=== PATIENT | female | born 1965 | race Caucasian/White ===

== ENCOUNTER 2025-06-23 19:02 | Emergency (ER) | payer BC, SELFPAY ==
--- NOTE | ~2025-06-23 | CT_ITS ---
CT HEAD NON-CONTRAST Clinical History: royce Comparison: 05/29/2019 Technique: Unenhanced axial images skull base to vertex Coronal, sagittal reformats CT images acquired with automatic exposure control for dose reduction DLP: 681 mGy-cm Findings: Bifrontal encephalomalacia, right side worse. Subtle nondisplaced occipital fracture not excluded. Sulci, ventricles: Unremarkable. No intracerebral hemorrhage. No evidence acute territorial infarct. No mass effect, midline shift. Visualized paranasal sinuses: Clear. Mastoid air cells: Clear. IMPRESSION: 1. No acute intracranial findings. Reviewed, dictated and finalized at location R.
--- NOTE | ~2025-06-23 | CT_ITS ---
EXAMINATION: CTA brain carotid DATE: 06/23/2025 20:59 INDICATION: Altered mental status. Seizure activity. TECHNIQUE: Computed tomographic angiography (CTA) of the head was performed with 100 mL Omnipaque-350 intravenous contrast. CTA of the neck was performed with intravenous contrast. Automated exposure control and iterative reconstruction technique were employed. The dose-length product was 956.63 mGy-cm. Maximum intensity projection and volume rendered 3D-reconstructions were created by the technologist on a separate workstation. COMPARISON: Head CT 06/23/2025 FINDINGS: HEAD CTA: There are old infarcts in the frontal lobes, right worse than left. There is no intracranial hemorrhage, acute infarction, or abnormal intracranial mass lesion. There is ex vacuo dilatation of right lateral ventricle. The orbits are normal. There is mild mucosal thickening in the paranasal sinuses. The mastoid air cells are normal. There is a chronic nondisplaced fracture of the occipital bone. The vertebral arteries are codominant. There is no significant stenosis of basilar artery or the posterior cerebral arteries. There is no significant stenosis of the intracranial internal carotid arteries or anterior or middle cerebral arteries. Anterior communicating artery is normal. The posterior communicating arteries are normal. There is no aneurysm. NECK CTA: There are no pathologically enlarged lymph nodes. There is no significant stenosis of the vertebral arteries. There is no visible plaque in the proximal internal carotid arteries. There is 0% stenosis of the proximal right internal carotid artery relative to normal distal artery lumen diameter (NASCET criteria). There is 0% stenosis of the proximal left internal carotid artery relative to normal distal artery lumen diameter. There is mild cervical spondylosis. There are chronic burst fractures of T4 and T5. IMPRESSION: 1. 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 2. No aneurysm or significant intracranial arterial stenosis. 3. 0% stenosis of the proximal internal carotid arteries relative to normal distal artery lumen diameters (NASCET criteria). Reviewed, dictated and finalized at location E. IMPRESSION: 1. 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 2. No aneurysm or significant intracranial arterial stenosis. 3. 0% stenosis of the proximal internal carotid arteries relative to normal dis allison artery lumen diameters (NASCET criteria).
[2025-06-23 19:09] VITALS: BP 114/83; PULSE 93; RESP 22; TEMP 36.6; O2SAT 97
--- NOTE | 2025-06-23 19:12 | ED_ITS ---
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 Per EMS, patient began have seizure activity around 1806. They are unsure of how long the tonic clonic activity lasted but when they arrived, and she was no longer doing that. She had apparently recently had her Keppra increased but was on vacation and ran out of her prescription so she has not had it for few days. Patient was given a total of 10 mg of Versed EN route. She has not had return to baseline. Related Data Allergies Allergy/AdvReac Type Severity Reaction Status Date / Time No Known Allergies Allergy Uncoded 05/29/19 13:57 Review of Systems 2 Review of Systems: ROS unobtainable: Yes unobtainable due to mental status Exam 2 Narrative: APPEARANCE: No acute distress, nontoxic, resting in bed EYES: PERRL. EOMI HEENT: Normocephalic, atraumatic, OMM RESPIRATORY: No respiratory distress Clear to auscultation bilaterally with no rhonchi wheezing or rales. CARDIOVASCULAR: Regular rate and rhythm without murmurs rubs or gallops. ABDOMINAL: Soft, nontender, nondistended, no rebound or guarding MUSCULOSKELETAl: Moves all extremities. No clubbing, cyanosis or edema. NEURO: Unresponsive. Following commands, speech normal, no focal deficits SKIN:: Warm, dry. No rashes lesions or abrasions Course Vital Signs Vital signs: Vital Signs Temperature 97.9 F 06/23/25 19:09 Pulse Rate 93 06/23/25 19:09 Respiratory Rate 22 H 06/23/25 19:09 Blood Pressure 114/83 06/23/25 19:09 Pulse Oximetry 97 06/23/25 19:09 Oxygen Delivery Room Air 06/23/25 19:09 Temperature 98.2 F 06/23/25 21:04 Pulse Rate 111 H 06/23/25 22:41 Respiratory Rate 20 06/23/25 22:41 Blood Pressure 140/98 H 06/23/25 22:41 Pulse Oximetry 96 06/23/25 22:41 Oxygen Delivery Room Air 06/23/25 19:09 MDM - Seizure MDM Narrative Medical decision making narrative: A 60-year-old female presenting for altered mental status and seizure activity. On initial evaluation, patient did appear postictal, was minimally responsive but protecting her airway. Did have an intermittent left lateral gaze. She had received a total of 10 mg IM Versed by EMS prior to arrival. She had no focal deficits noted but full neurologic exam is limited due to her altered mental status at this time. No obvious evidence of trauma. CBC was without significant abnormalities. She did have an anion gap of 21 likely explained by the lactic acidosis at 9 6. UA clear. UDS negative except for benzos. Patient continued to have intermittent left lateral gaze with some occasional shaking that may have been a subclinical seizure of some kind so she was given an additional 5 mg of Versed and given 2 g of Keppra. I discussed case with Dr. Stallworth, agrees with current antiepileptic regimen, recommends 750 mg b.i.d. while in the hospital. However, Stat rad called and CTA brain/cervical showed nondisplaced occipital bone fracture. I discussed the case with , neuro surgery, did recommended the patient be transferred in the event that she develops any intracranial surgical emergency such as an epidural hematoma. I subsequently discussed the case with [place], neurology at [facility], suggests discussions with neurosurgery. Spoke with Dr. Iverson, neurosurgery at [place], will accept patient in ED to ED transfer. Report given to Dr. Ramon, EM. Patient did begin to have some minor improvements in mental status and was mumbling some words and appeared to be complaining of pain throughout body her. Vitals remained stable except for some slight tachycardia. There were still no obvious focal neurologic deficits. Patient was transferred to [facility] in stable condition. CRITICAL CARE Indication: Status epilepticus Time type: intermittent I provided a total of 45 minutes of critical care excluding separately billable procedures. This includes time w/ EMS, initial bedside evaluation, reviewing old records, review of testing done while under my care, discussion w/ the family, nurses, service loss control consultant and guiding the patient?s care while in the emergency department. Differential Diagnosis Differential diagnosis: Likely intractable seizure disorder, focal seizure, generalized seizure and status epilepticus Medical Records Attestation: I reviewed the patient's medical records. Lab Data Attestation: I reviewed the patient's lab results. 06/23/25 19:14 06/23/25 19:14 Labs: Lab Results 06/23/25 06/23/25 06/23/25 Range/Units 19:11 19:14 19:31 WBC 5.8 (4.5-10.0) K/mm3 RBC 3.96 L (4.2-5.4) M/mm3 Hgb 13.1 (12.0-15.0) g/dL Hct 38.9 (37.0-47.0) % MCV 98.2 (80-100) fl MCH 33.1 (26-34) pg MCHC 33.7 (32-36) g/dl RDW 12.3 (11.5-14.5) % Plt Count 151 (150-375) k/mm3 MPV 8.9 (7.4-10.4) fl Immature Gran % (Auto) 0.9 H (0-0.5) % Neut % (Auto) 71.6 (45.5-73.1) % Lymph % (Auto) 20.8 (18.3-44.2) % Benzie % (Auto) 5.7 (2.6-8.5) % Eos % (Auto) 0.5 (0-4.4) % Baso % (Auto) 0.5 (0.2-1.2) % Lymph # (Auto) 1.20 (0.9-3.2) K/mm3 Benzie # (Auto) 0.3 (0.1-0.6) K/mm3 Eos # (Auto) 0.0 (0-0.3) K/mm3 Baso # (Auto) 0.0 (0.0-0.1) K/mm3 Abs Immat Gran (auto) 0.05 H (0.00-0.031) K/mm3 Absolute Neuts (auto) 4.1 (1.3-6.7) K/mm3 Absolute Nucleated RBC 0.000 (0.0-0.012) K/mm3 Nucleated RBC % 0.0 (0.0-0.2) % Sodium 133 L (137-145) mmol/L Potassium 3.8 (3.4-5.0) mmol/L Chloride 98 (98-107) mmol/L Carbon Dioxide 14 L (22-30) mmol/L Anion Gap 21 H (4-12) mmol/L BUN 8 (7-17) mg/dL Creatinine 0.67 L (0.7-1.0) mg/dL Estim Creat Clear Calc 65 ml/min Estimated GFR > 60 (59 - ) Glucose 109 (65-110) mg/dL POC Capillary Glucose 94 (65-105) mg/dl Lactic Acid 9.6 H* (0.7-2.0) mmol/L Calcium 9.1 (8.4-10.2) mg/dL Total Bilirubin 1.1 (0.2-1.3) mg/dL AST 96 H (14-36) U/L ALT 58 H (6-35) U/L Alkaline Phosphatase 87 (38-126) U/L Troponin I < 0.012 (0.000-0.034) ng/mL Total Protein 8.0 (6.3-8.2) g/dL Albumin 5.0 (3.5-5.1) g/dL TSH 3.340 (0.465-4.680) uIU/mL Urine Color Yellow (Yellow) Urine Appearance Clear (Clear) Urine pH 6.5 (5.0-9.0) Ur Specific Hedrick 1.012 (1.001-1.035) Urine Protein 1+ H (Negative) mg/dL Urine Glucose (UA) Negative (Negative) mg/dL Urine Ketones 1+ H (Negative) mg/dL Ur Blood (Man) Trace (Negative) Urine Nitrate Negative (Negative) Urine Bilirubin Negative (Negative) Urine Urobilinogen 1.0 (<2.0) mg/dL Leukocyte Esterase Rfl Negative (Negative) HYUN/UL Urine RBC 3-5 H (0-2) /hpf Urine WBC 0-5 (0-3) /hpf Ur Squamous Epith Cells None seen (Few) /hpf Urine Bacteria None seen /hpf Urine Casts 0-2 Salicylates < 1.0 L (2-20) mg/dL Urine Opiates Screen Negative (Negative) Urine Methadone Screen Negative (Negative) Acetaminophen < 10 L (10-30) ug/mL Ur Barbiturates Screen Negative (Negative) Ur Phencyclidine Scrn Negative (Negative) Ur Amphetamine Screen Negative (Negative) U Benzodiazepines Scrn Positive A (Negative) Urine Cocaine Screen Negative (Negative) U Cannabinoids Screen Negative (Negative) Ethyl Alcohol < 10 (<10) mg/dL 06/23/ Range/Units 21:31 WBC (4.5-10.0) K/mm3 RBC (4.2-5.4) M/mm3 Hgb (12.0-15.0) g/dL Hct (37.0-47.0) % MCV (80-100) fl MCH (26-34) pg MCHC (32-36) g/dl RDW (11.5-14.5) % Plt Count (150-375) k/mm3 MPV (7.4-10.4) fl Immature Gran % (Auto) (0-0.5) % Neut % (Auto) (45.5-73.1) % Lymph % (Auto) (18.3-44.2) % Benzie % (Auto) (2.6-8.5) % Eos % (Auto) (0-4.4) % Baso % (Auto) (0.2-1.2) % Lymph # (Auto) (0.9-3.2) K/mm3 Benzie # (Auto) (0.1-0.6) K/mm3 Eos # (Auto) (0-0.3) K/mm3 Baso # (Auto) (0.0-0.1) K/mm3 Abs Immat Gran (auto) (0.00-0.031) K/mm3 Absolute Neuts (auto) (1.3-6.7) K/mm3 Absolute Nucleated RBC (0.0-0.012) K/mm3 Nucleated RBC % (0.0-0.2) % Sodium (137-145) mmol/L Potassium (3.4-5.0) mmol/L Chloride (98-107) mmol/L Carbon Dioxide (22-30) mmol/L Anion Gap (4-12) mmol/L BUN (7-17) mg/dL Creatinine (0.7-1.0) mg/dL Estim Creat Clear Calc ml/min Estimated GFR (59 - ) Glucose (65-110) mg/dL POC Capillary Glucose (65-105) mg/dl Lactic Acid 2.4 H (0.7-2.0) mmol/L Calcium (8.4-10.2) mg/dL Total Bilirubin (0.2-1.3) mg/dL AST (14-36) U/L ALT (6-35) U/L Alkaline Phosphatase (38-126) U/L Troponin I (0.000-0.034) ng/mL Total Protein (6.3-8.2) g/dL Albumin (3.5-5.1) g/dL TSH (0.465-4.680) uIU/mL Urine Color (Yellow) Urine Appearance (Clear) Urine pH (5.0-9.0) Ur Specific Hedrick (1.001-1.035) Urine Protein (Negative) mg/dL Urine Glucose (UA) (Negative) mg/dL Urine Ketones (Negative) mg/dL Ur Blood (Man) (Negative) Urine Nitrate (Negative) Urine Bilirubin (Negative) Urine Urobilinogen (<2.0) mg/dL Leukocyte Esterase Rfl (Negative) HYUN/UL Urine RBC (0-2) /hpf Urine WBC (0-3) /hpf Ur Squamous Epith Cells (Few) /hpf Urine Bacteria /hpf Urine Casts Salicylates (2-20) mg/dL Urine Opiates Screen (Negative) Urine Methadone Screen (Negative) Acetaminophen (10-30) ug/mL Ur Barbiturates Screen (Negative) Ur Phencyclidine Scrn (Negative) Ur Amphetamine Screen (Negative) U Benzodiazepines Scrn (Negative) Urine Cocaine Screen (Negative) U Cannabinoids Screen (Negative) Ethyl Alcohol (<10) mg/dL Discharge Plan Discharge Clinical Impression: Epileptic seizure, Status epilepticus Closed occipital fracture Qualifiers: Encounter type: initial encounter Qualified Code(s): S02.119A - Unspecified fracture of occiput, initial encounter for closed fracture Patient Disposition: Acute Care Hospital Condition: Serious Patient Language: Spanish Follow-up/Referrals: UNKNOWN,DOCTOR [Primary Care Provider]
--- NOTE | 2025-06-23 19:14 | ECG_ITS ---
Test Date: 2025-06-23 19:57:59 Measurements Intervals Nixon Rate: 110 P: 68 UT: 141 QRS: 33 QRSD: 80 T: 63 QT: 331 QTc: 449 Interpretive Statements SINUS TACHYCARDIA BASELINE ARTIFACT- II, III, AVR, AVL, AVF, V4-V6 ABNORMAL ECG No previous ECG available for comparison Electronically Signed On 06-24-2025 06:13:18 CDT by Oscar Patiño D.O.
[2025-06-23 19:20] LABS: Hematocrit 38.9 % (37.0-47.0); Hemoglobin 13.1 g/dL (12.0-15.0); Immature Granulocyte Percent A 0.9 % (0-0.5); Lymphocytes Absolute Auto 1.20 K/mm3 (0.9-3.2); Mean Corpuscular HGB Conc 33.7 g/dl (32-36); Mean Corpuscular Hemoglobin 33.1 pg (26-34); Mean Corpuscular Volume 98.2 fl (80-100); Nucleated Red Blood Cells Absolute Auto 0.000 K/mm3 (0.0-0.012); Nucleated Red Blood Cells Perc 0.0 % (0.0-0.2); Platelet Count Result 151 k/mm3 (150-375); Red Blood Count 3.96 M/mm3 (4.2-5.4); White Blood Count 5.8 K/mm3 (4.5-10.0)
[2025-06-23 19:29] LABS: Acetaminophen < 10 ug/mL (10-30); Salicylate < 1.0 mg/dL (2-20)
[2025-06-23 19:32] LABS: Alanine Aminotransferase 58 U/L (6-35); Albumin Level 5.0 g/dL (3.5-5.1); Alkaline Phosphatase 87 U/L (38-126); Anion Gap 21 mmol/L (4-12); Aspartate Amino Transferase 96 U/L (14-36); Bilirubin,Total 1.1 mg/dL (0.2-1.3); Blood Urea Nitrogen 8 mg/dL (7-17); Calcium 9.1 mg/dL (8.4-10.2); Carbon Dioxide 14 mmol/L (22-30); Chloride 98 mmol/L (98-107); Estimated CRCL calculation 65 ml/min; Estimated Glomerular Filt Rate > 60; Glucose 109 mg/dL (65-110); Potassium 3.8 mmol/L (3.4-5.0); Sodium 133 mmol/L (137-145); Total Protein 8.0 g/dL (6.3-8.2)
[2025-06-23 19:42] LABS: Troponin I < 0.012 ng/mL (0.000-0.034)
[2025-06-23 19:44] LABS: Add Urine Microscopic? YES; Appearance Urine Clear (Clear); Glucose Urine UA Negative (Negative); Leukocyte Esterase Ur Negative LEU/UL (Negative); Nitrate Urine Negative (Negative); Non Pathogenic Casts 0-2; Specific Grav Ur 1.012 (1.001-1.035)
[2025-06-23 20:00] LABS: Cannabinoid Screen Urine Negative (Negative)
[2025-06-23] MEDS: SODIUM CHLORIDE 0.9% IV 1,000 ML 999 ML IV CONT (20:00)
[2025-06-23 20:01] LABS: Thyroid Stimulating Hormone 3.340 uIU/mL (0.465-4.680)
[2025-06-23] MEDS: levETIRAcetam 1000MG/NACL100ML 1,000 MG/100 ML BAG 400 MG IVPB ×2 (20:01)
--- OUTSIDE RECORDS SUMMARY | 2025-06-23 20:01 | XMS_ITS ---
Author Name Interface, [id number] lity Address [address] [facility] [address] [place] [address] Organization [facility] Address [address] [place] [address] Allergies and Adverse Reactions Medication/Group Name Reaction Severity Date tramadol 03/11/2025 Plan Date Type Value 04/05/2025 APPOINTMENT Established May ent 03/11/2025 APPOINTMENT Lab 03/11/2025 APPOINTMENT New Patient/Cons ult 03/11/2025 LAB_ORDER CEA 03/11/2025 LAB_ORDER CA 19-9 03/11/2025 LAB_ORDER CA 125 03/11/2025 LAB_ORDER Immunoglobulin a ssay, quant 03/11/2025 LAB_ORDER SPEP with immuno fixation 03/11/2025 LAB_ORDER CA 27-29 03/11/2025 LAB_ORDER [place]/Lambda lig ht chains, free w/ ratio, serum 03/11/2025 LAB_ORDER LDH 03/11/2025 LAB_ORDER CMP 03/11/2025 LAB_ORDER CBC w/ auto diff Reason for Visit Established Patient Encounters Date Name 03/11/2025 Radiology result abn ormal (finding) Immunizations Date Name Route Dose Instructions Refusal Reason Stat us Covid-19 vaccine (Moderna) Flu vaccine - Adult Medications Date Name Route Dose Frequency Instructions Start Date End Date Status Fill Status Indication 03/11 Naproxen Sodium Oral po qd active 03/11 Atenolol Oral po qd active 03/11 Alprazolam Oral po prn active 03/11 Sodium Chloride Oral po qd active 03/11 Hydrocorti sone Oral po q4hrs active 03/11 Levetirace [place] Oral (Keppra) po bid active Problems Diagnosis Status Date of Diagnosis Resolution Date Radiology result abnormal (finding) Active Vital Signs Date Type Value 03/11/2025 Weight 118.00 03/11/2025 Height 64.00 03/11/2025 BMI 20.25 03/11/2025 Pain Scale 0.00 03/11/2025 Heart Beat 81.00 03/11/2025 Intravascular Systolic 118 03/11/2025 Intravascular Diastolic 99 03/11/2025 BSA 1.56 Notes Section * Nurse Note for: 11-MAR-25 [facility] Nurse Note Print Location: Unknown Date/Time Printed: 06/23/2025 09:01 PM ([facility]) Patient: Shasha Garcia Sex: Female : 1965 Date of Service: 03/11/2025 Allergies : tramadol Vital Signs : Time: 03:00 AM. Pulse: 81 (/min) . Blood pressure: 118/99 (mm Hg). Entered by Kathy Pacheco 03/11/2025 12:31 PM Time: 03:00 AM. Weight: 118 (lb) . Height: 64 (in) . BMI: 20.25 (kg/m2) . BSA: 1.56 (m2) . Entered by Kathy Pacheco 03/11/2025 12:29 PM Time: 03:00 AM. Pain Scale: 0. Entered by Kathy Pacheco 03/11/2025 12:13 PM Patient Assessment : Negative results Assessment : Labs Verified: No, Alert, oriented with appropriate behavior, Gait Changes. Denies Neuropathy , Pain -0-No pain, Fatigue , Anxiety/Depression , Fever, Chills or Night Sweats ,Signs of Infection , Skin Changes , Dizziness , Headaches , Nausea , Breathing Changes , Cough , Mouth Sores/Stomatitis/Mucositis , Changes in Appetite , Vomiting , Diarrhea , Constipation , Urinary Changes , Bleeding . Entered By Kathy Pacheco on 12:13 PM
--- OUTSIDE RECORDS SUMMARY | 2025-06-23 20:01 | XMS_ITS | Patient Health Record ---
Author Organization [facility] Address [address] [facility] [address] [place] [address] Care Team Providers Care Butcher Apprentice Name Role Phone Yang Ho Unavailable [phone] Myra HOLMAN, Kim Unavailable Unavailable Reason For Referral No Information Plan Of Treatment No Information
--- OUTSIDE RECORDS SUMMARY | 2025-06-23 20:01 | XMS_ITS | Patient Health Record ---
Author Organization [facility] Address [address] [address] Care Team Providers Care Bathing Suit Maker Name Role Phone Emmett Eckert MD Primary Care Provider Lawson Teran MD Unavailable [phone] Emmett Eckert Unavailable Unavailable Allergies No Known Allergies Reason For Referral No Information Medications Medication SIG (Take, Route, Frequency, Duration) Notes Start Date End Date Status Gabapentin 300 MG Capsule TAKE 1 CAPSULE BY MOUTH TWICE DAILY AT 5 PM AND AT BEDTIME Oral; Duration: 30 Days Active ALPRAZolam 0.5 MG Tablet Oral; Duration: 30 Days Active Atenolol 25 MG Tablet 1 tablet Orally On ce a day Unknown Fluoxetine 10mg Unknown Lisinopril 20 MG Tablet 1 tablet Orally Once a day Unknown Protonix 40mg 03/23/2016 Unkno wn Omeprazole 40 MG Capsule Delayed Release 1 capsule 30 minutes before morning meal by mouth 1 DAILY; Duration: 30 days 10/17/2013 Unknown Sodium Chloride 1 GM Tablet TAKE 1 TABLET BY MOUTH THREE TIMES DAILY Oral; Duration: 30 Days Active Gabapentin 300 MG Capsule TAKE 1 CAPSULE BY MOUTH TWICE DAILY AT 5 PM AND AT BEDTIME Oral; Duration: 30 Days Not-Taking/PRN HYDROcodone-Acetaminophe n 5-325 MG Tablet TAKE 1 TABLET BY MOUTH EVERY 6 TO 12 HOURS NEEDED Oral; Duration: 7 Days Active diazePAM 5 MG Tablet Oral; Duration: 16 Days Active levETIRAcetam 500 MG Tablet Oral; Duration: 90 Days Active Benzonatate 100 MG Capsule Oral; Duration: 3 Days Active Social History Social History Additional Details Category Social Info Options Details Drugs/Alcohol(Archived) Do you smoke marijuana? NoMichael Anthony, MD 03/28/2024 01:32:28 PM > Do you drink alcohol? , Occasion allyMichael Anthony, MD 03/28/2024 01:32:43 PM > Tobacco Use: smoking No, Lawson Rodriguez MD 03/28/2024 01:32:20 PM > Problems Problem Type SNOMED Code ICD Code Onset Dates Problem Status W/U Status Risk Notes Problem Benign neoplasm of colon (22416883) Benign neoplasm of colon (211.3) 012 0 confirmed Colon polyp Problem Atrophic gastritis (88280649) Atrophic gastritis without mention of hemorrhage (535.10) 012 0 confirmed Gastritis atrophic w/o hem Problem Gastroduodenitis (207365362) Unspecified gastritis and gastroduodenitis without mention of hemorrhage (535.50) 012 0 confirmed Gastritis with out hemorrh Problem Epigastric pain (67909000) Abdominal pain, epigastric (789.06) 012 0 confirmed Abdominal pain/epiga stric/ Problem History of polyp of colon (situation) (704448175) History of colon polyps (Z86.010) Active confirmed Problem Dysphagia (55291077) Dysphagia (R13.14) Active confirmed Plan Of Treatment No Information Insurance Providers Payer Name Payer Address Payer Phone Subscriber Number Group Number Insured Name Patient Relationship to Insured Coverage Start Date Coverage End Date [place] P[place] [address] AGNIESZKA Ramsay, [place] [id number] [phone] [id number] Shasha Garcia Self - patient is the insured Medical (General) History Medical History History ICD Code Hypertension Anxiety w/ panic symptoms Brain Bleed / Intracranial Surgical History Surgery Date(Month/Year) Description:Colonoscopy 04/01/2016 Hysterectomy 1999 1996 Appendectomy n/a Hospitalization History Reason Date(Month/Year) [facility] for [facility]- brain bleed 12/2023
--- OUTSIDE RECORDS SUMMARY | 2025-06-23 20:01 | XMS_ITS | CCD ---
Author Name Interface, [id number] lity Address [address] [facility] [address] [place] [address] Organization [facility] Address [address] [facility] [address] [place] [address] Care Team Providers Care Metallographer Name Role Phone Kunal Coleman MD Unavailable Unavailable Allergies and Adverse Reactions Medication/Group Name Reaction Severity Date tramadol 03/11/2025 Care Plan Date Type Value 04/05/2025 APPOINTMENT Established May ent 03/11/2025 APPOINTMENT Lab 03/11/2025 APPOINTMENT New Patient/Cons ult 03/11/2025 LAB_ORDER CEA 03/11/2025 LAB_ORDER CA 19-9 03/11/2025 LAB_ORDER CA 125 03/11/2025 LAB_ORDER Immunoglobulin a ssay, quant 03/11/2025 LAB_ORDER SPEP with immuno fixation 03/11/2025 LAB_ORDER CA 27-29 03/11/2025 LAB_ORDER [place]/Lambda lig ht chains, free w/ ratio, serum [...] End Date Status Fill Status Indication 03/11 Atenolol Oral po qd active 03/11 Sodium Chloride Oral po qd active 03/11 Levetirace [place] Oral (Keppra) po bid active 03/11 Alprazolam Oral po prn active 03/11 Hydrocorti sone Oral po q4hrs active 03/11 Naproxen Sodium Oral po qd active Problems Diagnosis Status Date of Diagnosis Resolution Date Radiology result abnormal (finding) Active Procedures Date Category Name Instructions Status 03/11/2025 Physician Order Complete blood c ount with white cell differential, automated (procedure) Administered 04/01/2025 Physician Order RTC MD Ordered Social History Date Name Value 03/08/2025 Sex Female Vital Signs Date Type Value 03/11/2025 Weight 118.00 03/11/2025 Height 64.00 03/11/2025 BMI 20.25 03/11/2025 Pain Scale 0.00 03/11/2025 Heart Beat 81.00 03/11/2025 Intravascular Systolic 118 03/11/2025 Intravascular Diastolic 99 03/11/2025 BSA 1.56
[2025-06-23] MEDS: MIDAZOLAM HCL (*CRX) 2 MG/2 ML VIAL 5 MG IV PUSH (20:07)
[2025-06-23 21:04] VITALS: BP 141/97; PULSE 110; RESP 14; TEMP 36.8; O2SAT 100
[2025-06-23 22:38] VITALS: PULSE 111
[2025-06-23 22:41] VITALS: BP 140/98; PULSE 111; RESP 20; O2SAT 96
[2025-06-23 23:42] VITALS: BP 140/98; PULSE 111; RESP 20; O2SAT 96
== END 2025-06-23 23:47 | disposition short-term general hospital (02) ==
PROVIDERS: Emergency Provider Student in an Organized Health Care Education/Training Program
DX: G40.901 Epilepsy, unspecified, not intractable, with status epilepticus (principal); S02.119A Unspecified fracture of occiput, initial encounter for closed fracture; T42.6X6A Underdosing of other antiepileptic and sedative-hypnotic drugs, initial encounter; Z91.128 Patient's intentional underdosing of medication regimen for other reason; W19.XXXA Unspecified fall, initial encounter
CPT/HCPCS: 36415; 70450; 70496; 70498; 80053; 80143; 80179; 80307; 81001; 82077; 82948; 83605; 84443; 84484; 85025; 93005; 96365; 96366; 96367; 99285; J1953; J2250; J7030; Q9967